=== PATIENT | female | born 1985 | race Caucasian/White ===

== ENCOUNTER 2016-08-06 18:08 | Emergency (ER) | payer OTHER ==
[~2016-08-06] VITALS: Ht 172.7 cm; Wt 58.1 kg
== END 2016-08-06 20:32 | disposition home or self-care (01) ==
LOC: ED 18:08
DX: R04.0 Epistaxis (principal); R03.0 Elevated blood-pressure reading, without diagnosis of hypertension; F17.200 Nicotine dependence, unspecified, uncomplicated; Z98.890 Other specified postprocedural states; Z79.899 Other long term (current) drug therapy; Z88.6 Allergy status to analgesic agent; Z88.1 Allergy status to other antibiotic agents; Z88.5 Allergy status to narcotic agent; Z88.4 Allergy status to anesthetic agent; Z91.040 Latex allergy status

== ENCOUNTER → 2016-08-06 | Day surgery (SDC) | payer OTHER ==
[~2016-08-06] MED LIST: ADDERALL30 MG PO; AMOXICILLIN500 MG PO; BACTRIM DS 8001 TA1 PO; BUSPAR15 MG PO; CELEXA20 MG PO; CEPHALEXIN500 M1 PO; CIPROFLOXACIN500 MG PO; COGENTIN2 MG PO; DEPAKOTE500 MG PO; DIFLUCAN150 MG PO; DOXY-D100 MG PO; FOLIC ACID1 MG PO; GEODON40 MG PO; GEODON60 MG PO; KEFLEX500 MG PO; MACROBID100 M1 PO; MUCINEX600 MG PO; NEURONTIN800 MG PO; NICODERM21 MG/24 H TD; OXYCODONE HCL10 MG PO; OXYCODONE15 MG PO; PERCOCET 325 MG1 TA7 PO; PERIDEX 480 ML480 ML PO; PRILOSEC20 M1 PO; PROAIR HFA8.5 GM INH; SEROQUEL400 M1 PO; SYMBICORT1 AE1 INH; TEGRETOL100 MG PO; TOPAMAX25 M3 PO; TRAMADOL HCL50 MG PO; ULTRAM50 MG PO; VALIUM10 MG; VALIUM10 MG PO; VIBRAMYCIN100 MG PO; VICODIN 5/500 505 MG PO; XANAX2 MG PO; ZITHROMAX Z PA250 MG PO; ZOFRAN4 MG PO; ZYPREXA ZYDIS20 MG PO
--- NOTE | ~2016-08-06 | O ---
[place], [place] OPERATIVE NOTE [id number] UN[facility] #: [id number] ROOM: DOCTOR: DANELLE READ MD BIRTHDATE: [birth year] DOS: 08/06/2016 PREOPERATIVE DIAGNOSIS: Deviated nasal septum. POSTOPERATIVE DIAGNOSIS: Deviated nasal septum. OPERATION: Nasal septoplasty. SURGEON: Dr. Read. ANESTHESIA: General endotracheal. HISTORY: OPERATIVE FINDINGS AND PROCEDURE: Following induction of general endotracheal anesthesia, the patient was prepped and draped in a standard sterile fashion. The nasal membranes were decongested with topical 4% cocaine applied via cottonoids. Next, approximately 10 to 15 mL of 1% lidocaine with 1:100,000 epinephrine was infiltrated into the nasal septum bilaterally. A left-sided endonasal approach was used to elevate a mucoperiosteal flap. Deviated portions of cartilage and bone in the nasal septum were removed using endoscopic instrumentation. Following removal of these deviated portions of the nasal septum, there was significant improvement in the nasal airway. The nasoseptal membranes were reapproximated using a 4-0 chromic mattress suture. Merocel packing was placed in the left nasal cavity. The patient tolerated the procedure well. Oropharynx was suctioned free of blood. The patient was awakened, extubated and transported to PACU in satisfactory condition. At the end of the case, all instrument and sponge counts were correct. DANELLE READ MD CM:OPRECORD:OPERATIVE NOTE [id number] DANELLE READ MD 08/06/16 1206 interface
== END | disposition home or self-care (01) ==
LOC: SDC 07-31 10:15
DX: J34.2 Deviated nasal septum (principal); J44.9 Chronic obstructive pulmonary disease, unspecified; M10.9 Gout, unspecified; F31.9 Bipolar disorder, unspecified; Z91.5 Personal history of self-harm; Z90.710 Acquired absence of both cervix and uterus; Z83.3 Family history of diabetes mellitus; Z82.49 Family history of ischemic heart disease and other diseases of the circulatory system; F17.210 Nicotine dependence, cigarettes, uncomplicated

== ENCOUNTER 2016-10-22 15:56 | Inpatient (IN) | payer OTHER ==
[~2016-10-22] VITALS: Ht 172.7 cm; Wt 56.8 kg
--- NOTE | ~2016-10-22 | CON ---
[place], [place] REPORT OF CONSULTATION NAME: SUELLEN YAÑEZ UNIT #: [id number] ROOM: 416 DOCTOR: SOUMYA RENE ED.D (YESENIA) BIRTHDATE: [birth year] DOS: 10/23/2016 HISTORY OF PRESENT ILLNESS: The patient is a 31-year-old female referred by the hospitalist for issues related to her bipolar disorder and substance abuse. At the present time, this patient is a [facility] patient at [facility] on the fourth floor. She states she is , but . She does have 3 children. She is applied for disability and is not working at this time. She does have both parents living and she has 3 half brothers. Her family physician is Dr. Reese in [place], [place]. This patient's drug of choice is opiates and she also uses cocaine and cannabis. PAST MEDICAL HISTORY: Pertinent for opioid dependence, cocaine abuse, cannabis abuse, COPD, bipolar disorder, PTSD, borderline personality disorder, fibromyalgia, degenerative disk disease, ADHD and panic disorder. PHYSICAL EXAMINATION: This patient was awake, alert and oriented in all 3 spheres. She denies any auditory or visual hallucinations or delusions and denies any suicidal ideation or plan. She does follow with Griselda Sanchez at Dr. Lemus's office here in [place], [place]. She states she is being treated for ADHD, bipolar disorder and her ADHD and bipolar disorder. She adamantly denies doing anything to attempt to harm herself. This patient indicates that she has a long history of substance abuse and has been treated multiple times inpatient for her substance abuse. She states she has been to detox nearly 20 times. In addition, she has been hospitalized in [facility], [facility], [facility], [facility] and [facility] for psychiatric disorders. At the present time, she does not need psychiatric inpatient treatment, but should follow up outpatient once she is discharged. She should also continue to follow up with outpatient substance abuse treatment. DIAGNOSES: 1. PTSD. 2. Borderline personality disorder. 3. Bipolar disorder -- 1 -- mixed. 4. Opiate addiction. 5. Cannabis abuse. 6. Cocaine abuse. RECOMMENDATIONS: 1. Follow up with outpatient mental health. 2. Follow up with outpatient and inpatient substance abuse treatment. Thank you very much for this consult. [place], [place] REPORT OF CONSULTATION NAME: SUELLEN YAÑEZ UNIT #: [id number] ROOM: 416 DOCTOR: SOUMYA RENE ED.D) BIRTHDATE: [birth year] SOUMYA RENE ED.D CM:CONSTR:REPORT OF CONSULTATION 1714 10/24/16 0613 interface
[2016-10-22] MEDS ORDERED: BREO ELLIPTA 21 EACH IH (16:13)
[2016-10-22] MEDS ORDERED: DOXEPIN HCL10 MG PO (16:14)
[2016-10-22 16:15] VITALS: BP 130/84
[2016-10-22 18:00] LABS: BILIRUBIN NEGATIVE (NEGATIVE); BLOOD NEGATIVE (NEGATIVE); CLARITY SL CLOUDY (CLEAR); COLOR YELLOW (YELLOW); GLUCOSE NEGATIVE (NEGATIVE); KETONE NEGATIVE (NEGATIVE); LEUKO ESTERASE NEGATIVE (NEGATIVE); NITRITE NEGATIVE (NEGATIVE); PH 6.5 (5.0-9.0); PROTEIN NEGATIVE (NEGATIVE); SPECIFIC GRAVITY <= 1.005 (1.005-1.030); UROBILINOGEN 0.2 E.U./dl (0.2-1.0)
[2016-10-22 18:10] LABS: URINE AMPHETAMINES < 1000 (1000ng/ml); URINE BARBITURATES < 200 (200ng/ml); URINE COCAINE < 300 (300ng/ml)
[2016-10-22 18:18] LABS: BACTERIA 1+; RBC 0-2 rbc/hpf (0-2); URINE REFLEX COMMENT NO (NO); WBC 0-2 wbc/hpf (0-5)
[2016-10-22 18:58] LABS: BASO % 0.4 % (0.0-1.0); EOS # 0.2 10*3/uL (0.0-0.4); HEMATOCRIT 41.2 % (37.0-47.0); HEMOGLOBIN 13.8 g/dl (12.0-16.0); LYMPH # 3.8 10*3/uL (1.3-4.4); LYMPH % 51.4 % (27.0-41.0); MEAN CELL VOLUME 93.4 fl (81.0-99.0); MEAN CORPUSCULAR HGB 31.3 pg (27.0-31.0); MEAN CORPUSCULAR HGB CONC 33.5 g/dl (33.0-37.0); MEAN PLATELET VOLUME 10.4 fl (9.6-12.3); MONO # 0.7 10*3/uL (0.1-1.0); MONO % 9.5 % (3.0-9.0); NEUT # 2.7 10*3/uL (2.3-7.9); NEUT % 36.3 % (47.0-73.0); PLATELET COUNT AUTOMATED 222 10*3/uL (130-400); RED BLOOD COUNT 4.41 10*6/uL (4.10-5.10); RED CELL DISTRI WIDTH 12.9 % (0-14.5); WHITE BLOOD COUNT 7.4 10*3/uL (4.8-10.8)
[2016-10-22 19:14] LABS: ALBUMIN 3.7 gm/dl (3.1-4.5); ALKALINE PHOSPHATASE 97 U/L (45-117); BILIRUBIN, TOTAL 0.2 mg/dl (0.2-1.0); BUN 7 mg/dl (7-24); CARBON DIOXIDE 31 mmol/L (21-32); CHLORIDE 103 mmol/L (98-107); EST GLOM FILT AFRICAN AMERICAN > 60 ml/min; GLUCOSE 72 mg/dL (65-99); MAGNESIUM 2.2 mg/dL (1.5-2.1); POTASSIUM 3.7 mmol/L (3.5-5.1); SGOT/AST 13 IU/L (3-35); SGPT/ALT 16 U/L (12-78); SODIUM 141 mmol/L (136-145); TOTAL PROTEIN 8.3 gm/dL (6.4-8.2)
[2016-10-22 19:45] VITALS: BP 120/75
[2016-10-22 20:00] VITALS: BP 120/75
[2016-10-22 21:40] LABS: INTERNATIONAL NORM RATIO 0.9 (2.0-3.5)
[2016-10-23] VITALS: BP 103/59
[2016-10-23 04:00] VITALS: BP 119/70
[2016-10-23 08:00] VITALS: BP 118/86
[2016-10-23] MEDS ORDERED: BIOTIN5000 MCG PO (09:45)
[2016-10-23 11:48] VITALS: BP 126/67
[2016-10-23 16:00] VITALS: BP 108/53
[2016-10-23 20:00] VITALS: BP 115/64
[2016-10-24] VITALS: BP 123/63
[2016-10-24 08:00] VITALS: BP 120/60
[2016-10-24] MEDS ORDERED: OMEPRAZOLE D/R20 MG PO (10:06)
[2016-10-24] MEDS ORDERED: ZOFRAN 4 MG ED2 TAB PO (10:06)
[2016-10-24] MEDS ORDERED: ATARAX,VISTARIL50 MG PO (10:06)
[2016-10-24] MEDS ORDERED: ROPINIROLE HYD0.5 MG PO (10:06)
[2016-10-24] MEDS ORDERED: QUETIAPINE FUM100 M3 PO (10:06)
[2016-10-24] MEDS ORDERED: FLAGYL500 MG PO (11:17)
[2016-10-24] MEDS ORDERED: DIFLUCAN150 MG PO (11:17)
[2016-10-24] MEDS ORDERED: METHOCARBAMOL750 M1 PO (11:17)
== END 2016-10-24 11:22 | disposition home or self-care (01) | DRG 897 ==
LOC: ED 15:56 → EDHOLD 18:11 → 4E 18:11
PROVIDERS: Emergency Medicine; Internal Medicine Hospice and Palliative Medicine
DX: F11.23 Opioid dependence with withdrawal (principal); J43.9 Emphysema, unspecified; E83.41 Hypermagnesemia; F31.9 Bipolar disorder, unspecified; F14.10 Cocaine abuse, uncomplicated; B37.3 Candidiasis of vulva and vagina; G25.81 Restless legs syndrome; K59.00 Constipation, unspecified; F41.9 Anxiety disorder, unspecified; M50.30 Other cervical disc degeneration, unspecified cervical region; M51.36 Other intervertebral disc degeneration, lumbar region; M79.7 Fibromyalgia; F43.10 Post-traumatic stress disorder, unspecified; F90.9 Attention-deficit hyperactivity disorder, unspecified type; F12.10 Cannabis abuse, uncomplicated; F60.3 Borderline personality disorder; Z82.49 Family history of ischemic heart disease and other diseases of the circulatory system; Z83.3 Family history of diabetes mellitus; Z81.1 Family history of alcohol abuse and dependence; Z88.8 Allergy status to other drugs, medicaments and biological substances; Z88.6 Allergy status to analgesic agent; Z71.6 Tobacco abuse counseling; Z72.0 Tobacco use; Z88.1 Allergy status to other antibiotic agents; Z91.040 Latex allergy status; Z79.899 Other long term (current) drug therapy

== ENCOUNTER → 2016-10-24 | Outpatient (CLI) | payer OTHER ==
[~2016-10-24] MED LIST changes: +ATARAX,VISTARIL50 MG PO; +BIOTIN5000 MCG PO; +BREO ELLIPTA 21 EACH IH; +DOXEPIN HCL10 MG PO; +FLAGYL500 MG PO; +METHOCARBAMOL750 M1 PO; +OMEPRAZOLE D/R20 MG PO; +QUETIAPINE FUM100 M3 PO; +ROPINIROLE HYD0.5 MG PO; +ZOFRAN 4 MG ED2 TAB PO
[2016-10-24 12:39] LABS: HEMATOCRIT 36.4 % (37.0-47.0); MEAN CELL VOLUME 95.5 fl (81.0-99.0); MEAN CORPUSCULAR HGB 31.5 pg (27.0-31.0); MEAN PLATELET VOLUME 10.8 fl (9.6-12.3); PLATELET COUNT AUTOMATED 193 10*3/uL (130-400); RED BLOOD COUNT 3.81 10*6/uL (4.10-5.10); WHITE BLOOD COUNT 4.6 10*3/uL (4.8-10.8)
[2016-10-24 13:01] LABS: EOSINOPHIL # 0.1 10*3/uL (0-0.4); EOSINOPHILS 2 % (1-4); LYMPHOCYTE # 2.9 10*3/uL (1.3-4.4); MONOCYTE # 0.5 10*3/uL (0.1-1.0); NEUTROPHIL # 1.1 10*3/uL (2.3-7.9); NEUTROPHILS 24 % (47-73); TOTAL CELLS COUNTED 100 #CELLS
[2016-10-24 13:02] LABS: PLATELET SUFFICIENCY NORMAL (NORMAL)
[2016-10-24 13:08] LABS: ALBUMIN 3.2 gm/dl (3.1-4.5); ALKALINE PHOSPHATASE 77 U/L (45-117); BUN 3 mg/dl (7-24); CARBON DIOXIDE 30 mmol/L (21-32); CHLORIDE 105 mmol/L (98-107); EST GLOM FILT AFRICAN AMERICAN > 60 ml/min; GLUCOSE 84 mg/dL (65-99); POTASSIUM 3.5 mmol/L (3.5-5.1); SGOT/AST 16 IU/L (3-35); SGPT/ALT 16 U/L (12-78); SODIUM 141 mmol/L (136-145); TOTAL PROTEIN 7.2 gm/dL (6.4-8.2)
[2016-10-24 13:26] LABS: BILIRUBIN, TOTAL 0.1 mg/dl (0.2-1.0)
== END | disposition home or self-care (01) ==
LOC: LAB 11:56
PROVIDERS: Physician Assistant
DX: F31.5 Bipolar disorder, current episode depressed, severe, with psychotic features (principal)

== ENCOUNTER 2018-02-14 15:06 | Emergency (ER) | payer OTHER ==
[~2018-02-14] VITALS: Ht 172.7 cm; Wt 49.9 kg
== END 2018-02-14 15:45 | disposition home or self-care (01) ==
LOC: ED 15:06
DX: F11.23 Opioid dependence with withdrawal (principal); T40.2X5A Adverse effect of other opioids, initial encounter; F14.10 Cocaine abuse, uncomplicated; F12.10 Cannabis abuse, uncomplicated; F17.200 Nicotine dependence, unspecified, uncomplicated; Z88.1 Allergy status to other antibiotic agents; Z88.8 Allergy status to other drugs, medicaments and biological substances; Z88.5 Allergy status to narcotic agent; Z88.6 Allergy status to analgesic agent; Z91.040 Latex allergy status; Z79.899 Other long term (current) drug therapy; Y92.149 Unspecified place in prison as the place of occurrence of the external cause

== ENCOUNTER → 2019-01-20 | Outpatient (CLI) | payer OTHER ==
[2019-01-20 13:03] LABS: BASO % 0.4 % (0.0-1.0); EOS # 0.1 10*3/uL (0.0-0.4); EOS % 1.7 % (1.0-4.0); HEMATOCRIT 47.8 % (37.0-47.0); HEMOGLOBIN 16.5 g/dl (12.0-16.0); LYMPH # 2.3 10*3/uL (1.3-4.4); MEAN CELL VOLUME 91.9 fl (81.0-99.0); MEAN CORPUSCULAR HGB 31.7 pg (27.0-31.0); MEAN CORPUSCULAR HGB CONC 34.5 g/dl (33.0-37.0); MEAN PLATELET VOLUME 10.4 fl (9.6-12.3); MONO # 0.5 10*3/uL (0.1-1.0); MONO % 7.6 % (3.0-9.0); PLATELET COUNT AUTOMATED 218 10*3/uL (130-400); RED CELL DISTRI WIDTH 12.5 % (0-14.5)
[2019-01-20 13:33] LABS: ALBUMIN 4.4 gm/dl (3.1-4.5); ALKALINE PHOSPHATASE 90 U/L (45-117); BUN 7 mg/dl (7-24); CHLORIDE 107 mmol/L (98-107); POTASSIUM 3.3 mmol/L (3.5-5.1); SGOT/AST 26 IU/L (3-35); SGPT/ALT 40 U/L (12-78); SODIUM 139 mmol/L (136-145); TOTAL PROTEIN 8.3 gm/dL (6.4-8.2)
[2019-01-20 15:27] LABS: BILIRUBIN 1+ (NEGATIVE); BLOOD 1+ (NEGATIVE); CLARITY CLOUDY (CLEAR); COLOR YELLOW (YELLOW); GLUCOSE NEGATIVE (NEGATIVE); KETONE TRACE (NEGATIVE); LEUKO ESTERASE TRACE (NEGATIVE); NITRITE POSITIVE (NEGATIVE); SPECIFIC GRAVITY >= 1.030 (1.005-1.030)
[2019-01-20 17:47] LABS: BACTERIA 4+; EPITHELIAL CELLS 15-20; MUCOUS 1+; RBC 16-20 rbc/hpf (0-2); WBC TNTC wbc/hpf (0-5)
== END | disposition home or self-care (01) ==
LOC: LAB 12:39
PROVIDERS: Nurse Practitioner Family
DX: R31.9 Hematuria, unspecified (principal); N20.0 Calculus of kidney